=== PATIENT | male | born 1955 | race Caucasian/White ===

== ENCOUNTER 2016-11-10 19:57 | Emergency (ER) | payer SELFPAY ==
[2016-11-10] MEDS ORDERED: Peridex 473 ML473 ML PO (20:17)
[2016-11-10] MEDS ORDERED: PENICILLIN VK500 MG PO (20:17)
[2016-11-10] MEDS ORDERED: NAPROSYN500 MG PO (20:17)
== END 2016-11-10 20:20 | disposition home or self-care (01) ==
LOC: ED 19:57
DX: K02.9 Dental caries, unspecified (principal); R03.0 Elevated blood-pressure reading, without diagnosis of hypertension